=== PATIENT | male | born 1980 | race Caucasian/White ===

== ENCOUNTER 2016-05-26 07:39 | Day surgery (SDC) | payer OTHER ==
[2016-05-23 13:13] VITALS: BMI 29.0
[2016-05-26] VITALS (19 sets, daily range): BP systolic 106–144; BP diastolic 60–93; PULSE 48–76; RESP 11–22; Ht 172.7 cm; Wt 80.7 kg
[~2016-05-26] VITALS: Ht 172.7 cm; Wt 80.7 kg
[~2016-05-26 07:39] MED LIST: AMO500 PO; IBUP-1542 PO
[2016-05-26] MEDS ORDERED: SOD CHLORIDE 0.9% 1,000 ML IV SCH (09:00)
[2016-05-26] MEDS ORDERED: CEFAZOLIN 2 GM/50 ML (PMX) 50 ML IVPB ONE (09:00)
[2016-05-26 09:03] LABS: BASOPHILS % 0.4 % (0.0-2.0); EOSINOPHILS # 0.1 10^3/ul (0.0-0.5); EOSINOPHILS % 0.9 % (0.0-7.0); HEMATOCRIT 45.2 % (42.0-52.0); HEMOGLOBIN 15.8 g/dl (14.0-18.0); LYMPHOCYTES # 2.2 10^3/ul (0.8-2.9); LYMPHOCYTES % 30.8 % (15.0-51.0); MEAN CORPUSCULAR HEMOGLOBIN 32.5 pg (29.0-33.0); MEAN CORPUSCULAR VOLUME 92.9 fl (82.0-101.0); MEAN PLATELET VOLUME 7.9 fl (7.4-10.4); MONOCYTE # 0.5 10^3/ul (0.3-0.9); MONOCYTES % 6.8 % (0.0-11.0); NEUTROPHIL # 4.3 10^3/ul (1.6-7.5); NEUTROPHILS % 61.1 % (39.0-77.0); PLATELET COUNT 210 10^3/UL (140-440); RED BLOOD COUNT 4.86 10^6/ul (4.70-6.10); RED CELL DISTRIBUTION WIDTH 12.3 % (11.5-14.5)
[2016-05-26 09:13] LABS: INR 0.95; PROTIME 12.7 Sec (12.2-14.2)
[2016-05-26 09:26] LABS: CALCIUM 9.1 mg/dl (8.4-10.2); CREATININE 0.73 mg/dl (0.61-1.24); POTASSIUM 3.8 mmol/L (3.5-5.1)
[2016-05-26 09:33] LABS: CONDITION 1
[2016-05-26 10:13] LABS: PARTIAL THROMBOPLASTIN TIME 24.7 Sec (25.0-35.0)
[2016-05-26] MEDS ORDERED: PROPOFOL 20 ML ONE (10:14)
[2016-05-26] MEDS ORDERED: MIDAZOLAM 1 MG/ML 2 ML INJ ONE (10:14)
[2016-05-26] MEDS ORDERED: ROCURONIUM 50 MG INJ ONE (10:14)
[2016-05-26] MEDS ORDERED: FENTAnyl 50 MCG/ML VIAL ONE (10:14)
[2016-05-26] MEDS ORDERED: CEFAZOLIN 1 GM INJ ONE (10:26)
[2016-05-26] MEDS ORDERED: HYDROmorphONE (0.2 MG/ML) 10ML SYG IV PRN ×3 (10:30)
[2016-05-26] MEDS ORDERED: DIPHENHYDRAMINE 50 MG INJ IV PRN (10:30)
[2016-05-26] MEDS ORDERED: morphine (1 MG/ML) 10ML SYRINGE IV PRN ×3 (10:30)
[2016-05-26] MEDS ORDERED: ONDANSETRON 4 MG INJ IV PRN (10:30)
[2016-05-26] MEDS ORDERED: MEPERIDINE 25 MG INJ IV PRN (10:30)
[2016-05-26] MEDS ORDERED: KETOROLAC 30 MG INJ ONE (10:32)
[2016-05-26] MEDS ORDERED: ONDANSETRON 4 MG INJ ONE (10:32)
[2016-05-26] MEDS ORDERED: DEXAMETHASONE 4 MG/ML 1 ML INJ ONE (10:32)
[2016-05-26] MEDS ORDERED: METOCLOPRAMIDE 10 MG INJ ONE (10:32)
[2016-05-26] MEDS ORDERED: NEOSTIGMINE 3 MG/3 ML SYRINGE ONE (10:33)
[2016-05-26] MEDS ORDERED: GLYCOPYRROLATE 0.4 MG INJ ONE (10:33)
[2016-05-26] MEDS ORDERED: BUPIVACAINE 0.25% (MPF) 30 ML INJ ONE (10:38)
[2016-05-26] MEDS ORDERED: POLYMYXIN/BACITRACIN 1L IRRIG ONE (10:38)
[2016-05-26] MEDS ORDERED: HYDROCODONE/APAP (5/325) TAB PO ONE (11:00)
[2016-05-26] MEDS ORDERED: hydrALAzine 20 MG INJ IV PRN (11:30)
--- NOTE | 2016-05-26 12:01 | OPR ---
DATE OF OPERATION: 05/26/2016 INDICATION: This is a 36-year-old male with an incarcerated hernia. He requests surgical repair. Risks, alternatives, benefits, and personnel were discussed with the patient. The patient expressed understanding and consents to the operation. PREOPERATIVE DIAGNOSIS: Ventral incarcerated hernia. POSTOPERATIVE DIAGNOSIS: Ventral incarcerated hernia. OPERATION PERFORMED: Laparoscopic incarcerated ventral hernia repair with 10 x [address] mesh. SURGEON: Domingo Wick MD SPECIMEN: None. COMPLICATIONS: None. ANESTHESIA: General. DESCRIPTION OF PROCEDURE: The patient was taken to the OR and prepped and draped in the usual steri le fashion. Surgical time out was performed. IV antibiotics were given. Left upper quadrant trans verse incision was made with a 15 blade. Using a 5 mm optical trocar, optical entry was performed. Pneumoperitoneum was established. Left flank 12 mm optical trocar and left lower quadrant 5 mm opt ical trocars are placed under direct visualization. Upon initial inspection, there were incarcerate d hernia contents which were reduced laparoscopically with laparoscopic techniques and Harmonic. Th is incarcerated tissue is excised and retrieved through the large hole port. There was good hemosta sis. The defect was very small, underlay coverage was placed with mesh with approximately 5 cm of c overage in all directions. This was secured in place using SecureStrap. There was good hemostasis. Ports were removed under direct visualization. The skin was closed using skin fatou. Local ane sthesia was injected. Dry dressings were applied. Dictated By: DOMINGO HUANG/SILVIA Conf#: [id number] DID#: [id number]
== END 2016-05-26 13:30 | disposition home or self-care (01) ==
LOC: SDS 07:39
PROVIDERS: ATTEND Surgery
DX: K43.6 Other and unspecified ventral hernia with obstruction, without gangrene (principal)
CPT/HCPCS: 49653; 80048; 85025; 85610; 85730; C1781; J0690; J1100; J1170; J1885; J2175; J2250; J2270; J2405; J2710; J2765; J3010; Z7512; Z7610